=== PATIENT | male | born 1950 | race Caucasian/White ===

== ENCOUNTER 2018-10-14 11:48 | Day surgery (SDC) | payer OTHER ==
[~2018-10-14] VITALS: Ht 172.7 cm; Wt 86.6 kg
[2018-10-14] VITALS (9 sets, daily range): BP systolic 123–144; BP diastolic 72–97; PULSE 64–74; RESP 14–29; Ht 172.7 cm; Wt 86.6 kg
[~2018-10-14 11:48] MED LIST: CYCL100C21 PO
[2018-10-14] MEDS ORDERED: SOD CHLORIDE 0.9% 1,000 ML IV SCH (11:55)
[2018-10-14] MEDS ORDERED: FENTAnyl 50 MCG/ML VIAL ONE (13:08)
[2018-10-14] MEDS ORDERED: LIDOCAINE 1% (MDV) 20 ML INJ ONE (13:08)
[2018-10-14] MEDS ORDERED: MIDAZOLAM 1 MG/ML 2 ML INJ ONE (13:09)
== END 2018-10-14 16:05 | disposition home or self-care (01) ==
LOC: SDS 11:48
PROVIDERS: ATTEND Internal Medicine Hematology & Oncology
DX: D46.9 Myelodysplastic syndrome, unspecified (principal); D70.9 Neutropenia, unspecified
CPT/HCPCS: 38221; 77012; 88305; 88311; 88313; J2250; J3010